=== PATIENT | male | born 1975 | race African-American/Black ===

== ENCOUNTER 2019-10-27 09:55 | Emergency (ER) | payer BC ==
[2019-10-27 10:03] VITALS: BP 153/95; PULSE 84; TEMP 98.3; BMI 25.1
--- NOTE | 2019-10-27 10:32 | PDOC ---
History of Present Illness - General Chief Complaint: Urinary Problem Stated Complaint: R/O UTI/ ABD PAIN Time Seen by Provider: 10/27/19 10:23 History Source: Patient Exam Limitations: No Limitations - History of Present Illness Travel History: No Initial Comments: 10/27/19 10:48 44 year old male with medical history of HTN with no surgical history presents with pain to left lower abdomen and lower back pain x 2-3 weeks, seen by pmd one week ago taking bactrim DS but states pain still persist. Denies blood in urine, fever or chills. States pain is cramping in nature and radiates to left flank area. Timing/Duration: reports: constant Quality: reports: cramping Abdominal Pain Onset Location: reports: LLQ Pain Radiation: reports: back Activities at Onset: reports: none Treatment Prior to Arrive: improves with: other (antibiotics) Aggravating Factors: improves with: None Alleviating Factors: improves with: None Past History - Travel Traveled outside of the country in the last 30 days: No Close contact w/someone who was outside of country & ill: No - Past Medical History Allergies/Adverse Reactions: Allergies Allergy/AdvReac Type Severity Reaction Status Date / Time No Known Allergies Allergy Verified 10/27/19 10:00 Home Medications: Ambulatory Orders Ibuprofen 600 mg PO TID #14 tablet 10/27/19 COPD: No HTN: Yes - Immunization History Immunization Up to Date: Yes - Psycho Social/Smoking Cessation Hx Smoking History: Never smoked Have you smoked in the past 12 months: No Information on smoking cessation initiated: No Hx Alcohol Use: No Drug/Substance Use Hx: No Abd/GI Specific PMHX - Complaint Specific PMHX Colitis: No Gall Bladder Disease: No GERD: No Irritable Bowel Synd (IBS): No GI Ulcer Disease: No Review of Systems - Review of Systems Able to Perform ROS?: Yes Is the patient limited [place]ian proficient: No Constitutional: No: Chills, Fever, Weakness HEENTM: No: Nose Congestion, Hearing Loss, Throat Pain, Throat Swelling Respiratory: No: Orthopnea, Shortness of Breath, Wheezing, Productive cough Cardiac (ROS): No: Lightheadedness, Palpitations, Syncope ABD/GI: Yes: Abdominal cramping. No: Nausea, Poor Appetite, Poor Fluid Intake, Vomiting : Yes: Burning, Dysuria. No: Hematuria, Pain, Urgency, Testicular Mass, Testicular Swelling, Testicular Pain Musculoskeletal: No: Back Pain, Gout, Joint Pain, Muscle Weakness, Neck Pain Integumentary: No: Bruising, Dryness, Flushing Neurological: No: Headache *Physical Exam - Vital Signs Last Vital Signs Temp Pulse Resp BP Pulse Ox 98.3 F 84 17 153/95 99 10/27/19 10:00 10/27/19 10:00 10/27/19 10:00 10/27/19 10:00 10/27/19 10:00 - Physical Exam General Appearance: Yes: Nourished, Appropriately Dressed HEENT: positive: TMs Normal, Pharynx Normal Neck: positive: Supple. 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 lower abdominal pain -urinalysis and std screening ordered -analgesia ordered 10/27/19 11:23 urinalysis negative blood and nitrite encouraged to continue with bactrim DS and take analgesia Discharge - Discharge Information Problems reviewed: Yes Clinical Impression/Diagnosis: Urinary frequency Condition: Good Disposition: HOME - Admission No - Additional Discharge Information Prescriptions: Ibuprofen 600 mg PO TID #14 tablet - Follow up/Referral - Patient Discharge Instructions Patient Printed Discharge Instructions: DI for Urinary Tract Infection (UTI) Additional Instructions: -Please drink plenty fluid -treat fever with ibuprofen and acetaminophen -Follow up with primary physician - Post Discharge Activity Work/Back to School Note: Back to Work
[2019-10-27] MEDS ORDERED: KETOROLAC TROMETHAMINE 30 MG/1 ML VIAL IM ONE (10:45)
[2019-10-27] MEDS ORDERED: KETOROLAC TROMETHAMINE 30 MG/1 ML VIAL ONE ×2 (10:52→10:56)
[2019-10-27 10:55] LABS: PH,URINE 7.5 (5.0-8.0); URINE APPEARANCE CLEAR; URINE BILIRUBIN NEGATIVE (NEGATIVE); URINE COLOR YELLOW; URINE GLUCOSE (UA) NEGATIVE (NEGATIVE); URINE KETONE NEGATIVE (NEGATIVE); URINE LEUK ESTERASE NEGATIVE (NEGATIVE); URINE NITRITE NEGATIVE (NEGATIVE); URINE PROTEIN NEGATIVE (NEGATIVE); URINE UROBILINOGEN 0.2 mg/dL (0.2-1.0)
== END 2019-10-27 11:58 | disposition home or self-care (01) ==
LOC: JER 09:55 → JERFT 09:55
PROC: 3E0233Z Introduction of Anti-inflammatory into Muscle, Percutaneous Approach (ICD-10-PCS; principal; 2019-10-27)
DX: R35.0 Frequency of micturition (principal); I10 Essential (primary) hypertension; Z79.2 Long term (current) use of antibiotics
CPT/HCPCS: 36415; 81003; 87086; 87491; 87591; 99282-25

== ENCOUNTER 2023-10-24 08:01 | Emergency (ER) | payer BC ==
[2023-10-24 08:21] VITALS: BP 166/99; PULSE 80; RESP 18; TEMP 98; BMI 24.3
[2023-10-24] MEDS ORDERED: ACETAMINOPHEN 1000 MG/100 ML BAG IVPB ONE (09:18)
[2023-10-24] MEDS ORDERED: ACETAMINOPHEN INJECTION 100 ML IVPB ONE (09:19)
[2023-10-24 09:20] LABS: PH,URINE 6.5 (5.0-8.0); URINE APPEARANCE CLEAR; URINE BILIRUBIN NEGATIVE (NEGATIVE); URINE COLOR YELLOW; URINE GLUCOSE (UA) NEGATIVE (NEGATIVE); URINE KETONE NEGATIVE (NEGATIVE); URINE LEUK ESTERASE NEGATIVE (NEGATIVE); URINE NITRITE NEGATIVE (NEGATIVE); URINE PROTEIN NEGATIVE (NEGATIVE); URINE UROBILINOGEN 0.2 mg/dL (0.2-1.0)
[2023-10-24 09:44] LABS: BASO % 1.8 % (0-2.0); EOS % 0.6 % (0-4.5); HEMATOCRIT 46.2 % (35.4-49); HEMOGLOBIN 16.2 GM/dL (11.7-16.9); LYMPH % 41.2 % (8-40); MCH 28.4 pg (25.7-33.7); MEAN CELL VOLUME 81.3 fl (80-96); MEAN PLT VOLUME 9.1 fl (7.5-11.1); MONO % 7.7 % (3.8-10.2); NEUT % 48.7 % (42.8-82.8); PLATELET COUNT 197 10^3/uL (134-434); RBC 5.68 M/mm3 (4.00-5.60); RDW 14.6 % (11.9-15.9); WHITE BLOOD COUNT 3.9 K/mm3 (4.0-10.0)
[2023-10-24 10:11] LABS: POTASSIUM 4.5 mmol/L (3.5-5.1)
[2023-10-24 10:14] LABS: ALBUMIN 4.2 g/dl (3.4-5.0); BLOOD UREA NITROGEN 18.8 mg/dL (7-18); CALCIUM 9.3 mg/dL (8.5-10.1)
[2023-10-24 10:17] LABS: CREATININE 1.6 mg/dL (0.55-1.3)
[2023-10-24 10:19] LABS: TOT PROT 7.6 g/dl (6.4-8.2)
[2023-10-24 10:22] LABS: BILIRUBIN,TOTAL 0.8 mg/dL (0.2-1)
[2023-10-24] MEDS ORDERED: SODIUM CHLORIDE 0.9% 500 ML INFUS.BAG IV ONE (10:54)
== END 2023-10-24 12:29 | disposition home or self-care (01) ==
LOC: JER 08:01
PROC: 3E033NZ Introduction of Analgesics, Hypnotics, Sedatives into Peripheral Vein, Percutaneous Approach (ICD-10-PCS; principal; 2023-10-24)
DX: R10.9 Unspecified abdominal pain (principal); R35.0 Frequency of micturition; R30.0 Dysuria; M54.9 Dorsalgia, unspecified
CPT/HCPCS: 36415; 74177-TC; 80053; 81003; 83690; 85025; 87086; 99285-25